=== PATIENT | male | born 1975 | race African-American/Black ===

== ENCOUNTER 2017-03-10 20:24 | Emergency (ER) | payer SELFPAY ==
[~2017-03-10] VITALS: Ht 175.3 cm; Wt 72.6 kg
[~2017-03-10 20:24] MED LIST: GLIM4TAB2 PO; LISI-334 PO; LOVA20TA2 PO; METF-620 PO; SITA100T PO
[2017-03-10 20:42] VITALS: BP 142/77
[2017-03-10] MEDS ORDERED: PRED20TA PO (21:41)
--- NOTE | 2017-03-10 21:41 | PHYS DOC ---
Past Medical History Past Medical History: Diabetes-Type II, Other Additional Past Medical Histor: etoh Past Surgical History: No Surgical History Additional Past Surgical Histo: hernia repair Alcohol Use: Sober Drug Use: None Adult General Chief Complaint Chief Complaint: ALLERGIC REACTION [facility] HPI Patient is a 41 year old male presents to the emergency partner stating that he has a rash on bilateral arms and legs. He states he's been having this for the last 3-4 days. 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 Patient denies any shortness of air difficulty breathing. He states that he's tried Benadryl without any success. Patient does state he is a diabetic that is on diabetic oral medications. Review of Systems Review of Systems Constitutional: Denies fever or chills [] Eyes: Denies change in visual acuity, redness, or eye pain [] HENT: Denies nasal congestion or sore throat [] Respiratory: Denies cough or shortness of breath [] Cardiovascular: No additional information not addressed in HPI [] GI: Denies abdominal pain, nausea, vomiting, bloody stools or diarrhea [] : Denies dysuria or hematuria [] Musculoskeletal: Denies back pain or joint pain [] Integument: rash denies skin lesions [] Neurologic: Denies headache, focal weakness or sensory changes [] Endocrine: Denies polyuria or polydipsia [] Allergies Allergies Allergies Coded Allergies Type Severity Reaction Last Updated Verified No Known Drug Allergies 04/11/15 No Physical Exam Physical Exam Constitutional: Well developed, well nourished, no acute distress, non-toxic appearance. [] HENT: Normocephalic, atraumatic, bilateral external ears normal, oropharynx moist, no oral exudates, nose normal. [] Eyes: PERRLA, EOMI, conjunctiva normal, no discharge. [] Neck: Normal range of motion, no tenderness, supple, no stridor. [] Cardiovascular:Heart rate regular rhythm, no murmur [] Lungs & Thorax: Bilateral breath sounds clear to auscultation [] Skin: Warm, dry, no erythema, patient with some areas that appear to be urticarial type rash other areas just appear to be red raised area. No drainage or discharge coming from the sites. Back: No tenderness Extremities: No tenderness, no cyanosis, no clubbing, ROM intact, no edema. [] Neurologic: Alert and oriented X 3, normal motor function, normal sensory function, no focal deficits noted. [] Psychologic: Affect normal, judgement normal, mood normal. [] Current Patient Data Vital Signs Vital Signs Date Time Temp Pulse Resp B/P (MAP) Pulse Ox O2 Delivery O2 Flow Rate FiO2 03/10/17 20:42 98.2 67 20 99 Room Air 98.2 EKG EKG [] Radiology/Procedures Radiology/Procedures [] Course & Med Decision Making Course & Med Decision Making Pertinent Labs and Imaging studies reviewed. (See chart for details) Patient was recommended to follow-up with a primary care physician in regards to allergy to medications however I feel that this is more of a contact dermatitis. Patient will be recommended to use Benadryl 25 mg every 6 hours to help with itching and irritation. He was instructed this medication will cause drowsiness do not take any be alert and oriented. Patient will also be provided with a prescription for prednisone. He was instructed this medication will cause his glucoses to be elevated. Recommended taking this for the 7 days. Also recommended a Pepcid [id number] on a daily basis for the next 7 days. Patient agrees with discharge instructions, treatment regimens and follow-up recommendations. Signs and symptoms to return back to emergency department as been provided. Also recommended patient to keep the areas clean dry and cool Aveeno baths may also help. [] Dragon Disclaimer Dragon Disclaimer This electronic medical record was generated, in whole or in part, using a voice recognition dictation system. Departure Departure Impression: Primary Impression: Contact dermatitis Disposition: 01 HOME, SELF-CARE Condition: STABLE Referrals: NO PCP (PCP) Patient Instructions: Contact Dermatitis, [id number] Additional Instructions: Activity as tolerated. Keep the areas clean dry and cool. Benadryl 25 mg every 6 hours as needed for itching or irritation. This medications will cause drowsiness do not take any be alert and oriented. Medications as prescribed. Pepcid 1 tablet daily as directed [id number]. He may take this for the next 7 days to help with the contact dermatitis. Follow-up to primary care physician in the next 5-7 days. Return back to emergency prior signs symptoms of become worse. Scripts Prednisone (PREDNISONE) 20 Mg Tablet 40 MG PO DAILY, #14 TAB Prov: SHARIF RAPHAEL APRN 03/10/17 SHARIF RAPHAEL APRN Mar 10, 2017 21:41
== END 2017-03-10 21:45 | disposition home or self-care (01) ==
LOC: ER 20:24
DX: L25.9 Unspecified contact dermatitis, unspecified cause (principal); E11.9 Type 2 diabetes mellitus without complications
CPT/HCPCS: 99283

== ENCOUNTER 2017-10-12 00:42 | Emergency (ER) | payer OTHER ==
[2017-10-12] MEDS: IV NORMAL SALINE 1000ML BAG 1,000 ML IV (03:20)
== END 2017-10-12 04:08 | disposition home or self-care (01) ==
LOC: ER 00:42
DX: R05 Cough (principal); F17.200 Nicotine dependence, unspecified, uncomplicated; E86.0 Dehydration; E11.65 Type 2 diabetes mellitus with hyperglycemia; R07.89 Other chest pain; I10 Essential (primary) hypertension; Z71.6 Tobacco abuse counseling
CPT/HCPCS: 71046; 84484; 93005; 96360; 99284-25; J7030

== ENCOUNTER 2018-07-03 22:30 | Emergency (ER) | payer OTHER ==
[~2018-07-03] VITALS: Ht 172.7 cm; Wt 72.6 kg
[~2018-07-03 22:30] MED LIST changes: +BENZ100C PO; +CEPH-264 PO; +DOXY100T9 PO; +FOLI1TAB16 PO; -METF-620 PO; +METF10007 PO; +PRED20TA PO
[2018-07-03 23:08] LABS: BASO % 1 % (0-3); EOS # 0.1 x10^3/uL (0.0-0.7); EOS % 1 % (0-3); HEMATOCRIT 50.8 % (39.0-53.0); HEMOGLOBIN 17.7 g/dL (13.0-17.5); LYMPH # 4.4 x10^3/uL (1.0-4.8); LYMPH % 62 % (24-48); MEAN CORPUSCULAR HEMOGLOBIN 33 pg (25-35); MEAN CORPUSCULAR HGB CONC 35 g/dL (31-37); MEAN CORPUSCULAR VOLUME 95 fL (79-100); MONO # 0.5 x10^3/uL (0.0-1.1); MONO % 7 % (0-9); NEUT # 2.1 x10^3uL (1.8-7.7); NEUT % 29 % (31-73); PLATELET COUNT 156 x10^3/uL (140-400); RED BLOOD COUNT 5.35 x10^6/uL (4.30-5.70); RED CELL DISTRIBUTION WIDTH 14.4 % (11.5-14.5); WHITE BLOOD COUNT 7.1 x10^3/uL (4.0-11.0)
[2018-07-03 23:15] LABS: CALCIUM 9.4 mg/dL (8.5-10.1); GFR 99.6; POTASSIUM 4.4 mmol/L (3.5-5.1)
[2018-07-03] MEDS ORDERED: IV NORMAL SALINE 1000ML BAG 1,000 ML IV ONE (23:15)
[2018-07-03 23:20] LABS: ALBUMIN 4.1 g/dL (3.4-5.0); TOTAL BILIRUBIN 0.2 mg/dL (0.2-1.0); TOTAL PROTEIN 8.2 g/dL (6.4-8.2)
[2018-07-03 23:38] LABS: % BASOS 1 % (0-3); % EOS 1 % (0-5); % MONOS 4 % (0-10); % SEGS 24 % (35-66); PLT ESTIMATE ADEQUATE (ADEQUATE)
[2018-07-03 23:39] LABS: % ATYL 5 % (0-0); % LYMPHS 65 % (24-48)
--- NOTE | 2018-07-04 01:30 | PHYS DOC ---
Past Medical History Past Medical History: Diabetes-Type II, Hypertension Additional Past Medical Histor: etoh Past Surgical History: Other Additional Past Surgical Histo: HERNIA SX Alcohol Use: Heavy Drug Use: None Adult General Chief Complaint Chief Complaint: ALCOHOL INTOXICATION HPI HPI Patient is a 43 year old female presented with alcohol intoxication he drank too much alcohol said she thought that the patient was going to have a seizure because he wet himself he was unconscious and drooling. History limited by the patient's mental status Review of Systems Review of Systems Limited by the patient's mental status. Current Medications Current Medications Current Medications Medications (Trade) Dose Ordered Sig/Serafin Start Time Stop Time Status Last Admin Dose Admin Sodium Chloride 1,000 ml @ 1,000 mls/hr 1X ONCE 07/03/18 23:15 07/04/18 00:14 DC 07/03/18 23:07 1,000 MLS/HR Allergies Allergies Allergies Coded Allergies Type Severity Reaction Last Updated Verified No Known Drug Allergies 04/11/15 No Physical Exam Physical Exam Constitutional: Well developed, well nourished,[] smells like alcohol HENT: Normocephalic, atraumatic, bilateral external ears normal, oropharynx moist, no oral exudates, nose normal. [] Eyes: PERRLA, EOMI, conjunctiva normal, no discharge. [] Neck: Normal range of motion, no tenderness, supple, no stridor. [] Cardiovascular:Heart rate regular rhythm, no murmur [] Lungs & Thorax: Bilateral breath sounds clear to auscultation [] Abdomen: Bowel sounds normal, soft, no tenderness, no masses, no pulsatile masses. [] Skin: Warm, dry, no erythema, no rash. [] Back: No tenderness, no CVA tenderness. [] Extremities: No tenderness, no cyanosis, no clubbing, ROM intact, no edema. [] Neurologic: Alert and oriented X 3, normal motor function, normal sensory function, no focal deficits noted. [] SPEECH slurred c/w known alcohol. Psychologic:difficult to assess. Current Patient Data Vital Signs Vital Signs Date Time Temp Pulse Resp B/P (MAP) Pulse Ox O2 Delivery O2 Flow Rate FiO2 07/04/18 02:25 105 16 115/69 (84) 98 Room Air 07/03/18 22:30 97.9 97.9 Lab Values Laboratory Tests Test 07/03/18 22:40 White Blood Count 7.1 x10^3/uL (4.0-11.0) Red Blood Count 5.35 x10^6/uL (4.30-5.70) Hemoglobin 17.7 g/dL (13.0-17.5) H Hematocrit 50.8 % (39.0-53.0) Mean Corpuscular Volume 95 fL (79-100) Mean Corpuscular Hemoglobin 33 pg (25-35) Mean Corpuscular Hemoglobin Concent 35 g/dL (31-37) Red Cell Distribution Width 14.4 % (11.5-14.5) Platelet Count 156 x10^3/uL (140-400) Neutrophils (%) (Auto) 29 % (31-73) L Lymphocytes (%) (Auto) 62 % (24-48) H Monocytes (%) (Auto) 7 % (0-9) Eosinophils (%) (Auto) 1 % (0-3) Basophils (%) (Auto) 1 % (0-3) Neutrophils # (Auto) 2.1 x10^3uL (1.8-7.7) Lymphocytes # (Auto) 4.4 x10^3/uL (1.0-4.8) Monocytes # (Auto) 0.5 x10^3/uL (0.0-1.1) Eosinophils # (Auto) 0.1 x10^3/uL (0.0-0.7) Basophils # (Auto) 0.0 x10^3/uL (0.0-0.2) Segmented Neutrophils % 24 % (35-66) L Lymphocytes % 65 % (24-48) H Atypical Lymphocytes % (Manual) 5 % (0-0) H Monocytes % 4 % (0-10) Eosinophils % 1 % (0-5) Basophils % 1 % (0-3) Platelet Estimate Adequate (ADEQUATE) Sodium Level 143 mmol/L (136-145) Potassium Level 4.4 mmol/L (3.5-5.1) Chloride Level 101 mmol/L (98-107) Carbon Dioxide Level 27 mmol/L (21-32) Anion Gap 15 (6-14) H Blood Urea Nitrogen 7 mg/dL (8-26) L Creatinine 1.0 mg/dL (0.7-1.3) Estimated GFR (Cockcroft-Gault) 99.6 BUN/Creatinine Ratio 7 (6-20) Glucose Level 250 mg/dL (70-99) H Calcium Level 9.4 mg/dL (8.5-10.1) Total Bilirubin 0.2 mg/dL (0.2-1.0) Aspartate Amino Transferase (AST) 99 U/L (15-37) H Alanine Aminotransferase (ALT) 79 U/L (16-63) H Alkaline Phosphatase 109 U/L (46-116) Total Protein 8.2 g/dL (6.4-8.2) Albumin 4.1 g/dL (3.4-5.0) Albumin/Globulin Ratio 1.0 (1.0-1.7) Ethyl Alcohol Level 502 mg/dL (0-10) *H Laboratory Tests 07/03/18 22:40 Laboratory Tests 07/03/18 22:40 EKG EKG [] Radiology/Procedures Radiology/Procedures [] Course & Med Decision Making Course & Med Decision Making Pertinent Labs and Imaging studies reviewed. (See chart for details) []Patient is not elevation of liver enzymes which is to be expected the alcohol level is 502 this is quite elevated. Patient is maintaining his airway. Pressure was 250 patient was hydrated we will observe him for serial neurologic examinations in the emergency room. Reevaluation at 1:20 AM patient is arousable to light touch sat is 94 and room air he is breathing and resting comfortably will continue observe him. 3 am, notified by staff patient had walked to the bathroom fairly steady gait. d/c with family Dragon Disclaimer Dragon Disclaimer This electronic medical record was generated, in whole or in part, using a voice recognition dictation system. Departure Departure Impression: Primary Impression: Alcohol abuse Disposition: HOME, SELF-CARE Condition: STABLE Referrals: NO PCP (PCP) CAROLEE TAMAYO MD Jul 04, 2018 01:30
[2018-07-04 02:25] VITALS: BP 115/69
== END 2018-07-04 03:25 | disposition home or self-care (01) ==
LOC: ER 22:30
DX: F10.129 Alcohol abuse with intoxication, unspecified (principal); Y90.8 Blood alcohol level of 240 mg/100 ml or more; I10 Essential (primary) hypertension; E11.9 Type 2 diabetes mellitus without complications
CPT/HCPCS: 36415; 80053; 85007; 85025; 99284; G0480; J7030; 96360

== ENCOUNTER 2019-04-27 22:14 | Emergency (ER) | payer BC, OTHER ==
[~2019-04-27] VITALS: Ht 177.8 cm; Wt 68.0 kg
[~2019-04-27 22:14] MED LIST changes: +DOXY-96 PO; -DOXY100T9 PO; -GLIM4TAB2 PO; +GLIM4TAB4 PO
[2019-04-27 22:45] LABS: BASO % 1 % (0-3); EOS # 0.1 x10^3/uL (0.0-0.7); EOS % 1 % (0-3); HEMATOCRIT 39.8 % (39.0-53.0); HEMOGLOBIN 13.9 g/dL (13.0-17.5); LYMPH # 3.6 x10^3/uL (1.0-4.8); LYMPH % 65 % (24-48); MEAN CORPUSCULAR HEMOGLOBIN 33 pg (25-35); MEAN CORPUSCULAR HGB CONC 35 g/dL (31-37); MEAN CORPUSCULAR VOLUME 95 fL (79-100); MONO # 0.5 x10^3/uL (0.0-1.1); MONO % 9 % (0-9); NEUT # 1.4 x10^3/uL (1.8-7.7); NEUT % 24 % (31-73); PLATELET COUNT 189 x10^3/uL (140-400); RED BLOOD COUNT 4.18 x10^6/uL (4.30-5.70); RED CELL DISTRIBUTION WIDTH 13.7 % (11.5-14.5); WHITE BLOOD COUNT 5.6 x10^3/uL (4.0-11.0)
--- NOTE | 2019-04-27 22:50 | PHYS DOC ---
Past Medical History Past Medical History: Diabetes-Type II, Hypertension Additional Past Medical Histor: etoh Past Surgical History: Other Additional Past Surgical Histo: HERNIA SX Alcohol Use: Heavy Drug Use: None Adult General Chief Complaint Chief Complaint: HEMATEMESIS/VOMITING BLOOD HPI HPI 43-year-old male presents to the emergency department with complaints of hemat emesis, nausea, vomiting, dark stools that are intermittent, intermittent epigastric pain. Patient states he's been having these symptoms off and on for approximately 1-1/2 months. He describes drinking daily, 1 pint of vodka. He patient's family history of diabetes, hypertension, hyperlipidemia. States the vomiting is not daily. He states he's had decreased appetite. Review of Systems Review of Systems Constitutional: Denies fever or chills [] Respiratory: Denies cough or shortness of breath [] Cardiovascular: No additional information not addressed in HPI [] GI: Intermittent epigastric pain, nausea, vomiting, hematemesis, dark stools that are intermittent Musculoskeletal: Denies back pain or joint pain [] Integument: Denies rash or skin lesions [] Neurologic: Denies headache, focal weakness or sensory changes [] All other systems were reviewed and found to be within normal limits, except as documented in this note. Current Medications Current Medications Current Medications Medications (Trade) Dose Ordered Sig/Serafin Start Time Stop Time Status Last Admin Dose Admin Magnesium Sulfate 50 ml @ 25 mls/hr 1X ONCE 04/28/19 00:15 04/28/19 02:14 Pantoprazole Sodium (PROTONIX VIAL for IV PUSH) 40 mg 1X ONCE 04/28/19 00:15 04/28/19 00:16 Allergies Allergies Allergies Coded Allergies Type Severity Reaction Last Updated Verified No Known Drug Allergies 04/11/15 No Physical Exam Physical Exam Constitutional: Well developed, well nourished, no acute distress, non-toxic appearance. [] HENT: Normocephalic, atraumatic, bilateral external ears normal, oropharynx moist, no oral exudates, nose normal. [] Eyes: PERRLA, EOMI, conjunctiva normal, no discharge. [] Cardiovascular:Heart rate regular rhythm, no murmur [] Lungs & Thorax: Bilateral breath sounds clear to auscultation [] Abdomen: Bowel sounds normal, soft, no tenderness, no masses, no pulsatile masses. [] Skin: Warm, dry, no erythema, no rash. [] Extremities: No tenderness, no edema. [] Neurologic: Alert and oriented X 3, no focal deficits noted. [] Psychologic: Affect normal, judgement normal, mood normal. [] Current Patient Data Vital Signs Vital Signs Date Time Temp Pulse Resp B/P (MAP) Pulse Ox O2 Delivery O2 Flow Rate FiO2 04/27/19 22:22 99.2 89 12 170/105 (126) 97 Room Air 99.2 Lab Values Laboratory Tests Test 04/27/19 22:28 04/27/19 22:34 White Blood Count 5.6 x10^3/uL (4.0-11.0) Red Blood Count 4.18 x10^6/uL (4.30-5.70) L Hemoglobin 13.9 g/dL (13.0-17.5) Hematocrit 39.8 % (39.0-53.0) Mean Corpuscular Volume 95 fL (79-100) Mean Corpuscular Hemoglobin 33 pg (25-35) Mean Corpuscular Hemoglobin Concent 35 g/dL (31-37) Red Cell Distribution Width 13.7 % (11.5-14.5) Platelet Count 189 x10^3/uL (140-400) Neutrophils (%) (Auto) 24 % (31-73) L Lymphocytes (%) (Auto) 65 % (24-48) H Monocytes (%) (Auto) 9 % (0-9) Eosinophils (%) (Auto) 1 % (0-3) Basophils (%) (Auto) 1 % (0-3) Neutrophils # (Auto) 1.4 x10^3/uL (1.8-7.7) L Lymphocytes # (Auto) 3.6 x10^3/uL (1.0-4.8) Monocytes # (Auto) 0.5 x10^3/uL (0.0-1.1) Eosinophils # (Auto) 0.1 x10^3/uL (0.0-0.7) Basophils # (Auto) 0.0 x10^3/uL (0.0-0.2) Segmented Neutrophils % 23 % (35-66) L Lymphocytes % 68 % (24-48) H Atypical Lymphocytes % (Manual) 2 % (0-0) H Monocytes % 6 % (0-10) Eosinophils % 1 % (0-5) Smudge Cells Present Platelet Estimate Adequate (ADEQUATE) Sodium Level 134 mmol/L (136-145) L Potassium Level 3.7 mmol/L (3.5-5.1) Chloride Level 97 mmol/L (98-107) L Carbon Dioxide Level 23 mmol/L (21-32) Anion Gap 14 (6-14) Blood Urea Nitrogen 11 mg/dL (8-26) Creatinine 1.0 mg/dL (0.7-1.3) Estimated GFR (Cockcroft-Gault) 99.6 BUN/Creatinine Ratio 11 (6-20) Glucose Level 213 mg/dL (70-99) H Calcium Level 8.9 mg/dL (8.5-10.1) Magnesium Level 1.7 mg/dL (1.8-2.4) L Total Bilirubin 0.8 mg/dL (0.2-1.0) Aspartate Amino Transferase (AST) 189 U/L (15-37) H Alanine Aminotransferase (ALT) 93 U/L (16-63) H Alkaline Phosphatase 78 U/L (46-116) Total Protein 7.5 g/dL (6.4-8.2) Albumin 3.6 g/dL (3.4-5.0) Albumin/Globulin Ratio 0.9 (1.0-1.7) L Lipase 189 U/L (73-393) Ethyl Alcohol Level 277 mg/dL (0-10) H Stool Occult Blood Negative (NEG) Laboratory Tests 04/27/19 22:28 Laboratory Tests 04/27/19 22:28 EKG EKG [] Radiology/Procedures Radiology/Procedures [] Course & Med Decision Making Course & Med Decision Making Pertinent Labs and Imaging studies reviewed. (See chart for details) []43-year-old male presents to the emergency department with complaints of hematemesis, nausea, vomiting, dark stools that are intermittent, intermittent epigastric pain. Patient states he's been having these symptoms off and on for approximately 1-1/2 months. He describes drinking daily, 1 pint of vodka. He patient's family history of diabetes, hypertension, hyperlipidemia. States the vomiting is not daily. He states he's had decreased appetite. Labs reviewed with patient. Magnesium low at 1.7, he will of 13.9, negative Hemoccult appreciated. His blood pressure did improve after hydralazine 10 mg. A call cessation, Protonix 40 mg by mouth twice a day, addition of amlodipine 10 mg daily for blood pressure control. Recommend following primary care physician as an outpatient. Likely has alcoholic gastritis no evidence of acute or active bleeding. Dragon Disclaimer Dragon Disclaimer This electronic medical record was generated, in whole or in part, using a voice recognition dictation system. Departure Departure Impression: Primary Impression: Hematemesis Additional Impressions: Alcoholic gastritis Hypertension Alcohol abuse Disposition: HOME, SELF-CARE Condition: STABLE Referrals: NO PCP (PCP) Patient Instructions: Alcoholic Gastritis-Brief, Hypertension Additional Instructions: Recommend follow up with PCP 3 - 5 days Return to the ER with worsening symptoms, intractable pain, fever, altered mental status Tylenol as needed for pain Protonix 40 mg by mouth twice a day Recommend slow alcohol cessation, discussed signs of alcohol withdrawal No evidence of active GI bleed, hemoglobin stable, no evidence of blood in stool Scripts Amlodipine Besylate/Benazepril (AMLODIPINE-BENAZEPRIL 10-20 MG) 1 Each Capsule 1 CAP PO DAILY, #90 CAP 1 Refill Prov: FLETCHER PATEL MD 04/28/19 Pantoprazole Sodium (PROTONIX) 20 Mg Tablet.dr 20 MG PO DAILY for 30 Days, #60 TAB 2 by mouth twice a day Prov: FLETCHER PATEL MD 04/28/19 Problem Qualifiers Primary Impression: Hematemesis Nausea presence: unspecified Qualified Codes: K92.0 - Hematemesis Additional Impressions: Alcoholic gastritis Chronicity: chronic Gastritis bleeding: presence of bleeding unspecified Qualified Codes: K29.20 - Alcoholic gastritis without bleeding Hypertension Hypertension type: essential hypertension Qualified Codes: I10 - Essential (primary) hypertension FLETCHER PATEL MD Apr 27, 2019 22:50
[2019-04-27 22:55] LABS: CALCIUM 8.9 mg/dL (8.5-10.1); GFR 99.6; POTASSIUM 3.7 mmol/L (3.5-5.1)
[2019-04-27 23:01] LABS: ALBUMIN 3.6 g/dL (3.4-5.0); ALBUMIN/GLOBULIN RATIO 0.9 (1.0-1.7); MAGNESIUM 1.7 mg/dL (1.8-2.4); TOTAL BILIRUBIN 0.8 mg/dL (0.2-1.0); TOTAL PROTEIN 7.5 g/dL (6.4-8.2)
[2019-04-27 23:23] LABS: % ATYL 2 % (0-0); % EOS 1 % (0-5); % LYMPHS 68 % (24-48); % MONOS 6 % (0-10); % SEGS 23 % (35-66); PLT ESTIMATE ADEQUATE (ADEQUATE)
[2019-04-28 00:02] LABS: FECAL OB PT NEGATIVE (NEG)
[2019-04-28] MEDS ORDERED: MAGNESIUM SULFATE 2GM 50 ML IV ONE (00:15)
[2019-04-28] MEDS ORDERED: PANTOPRAZOLE IV PUSH 40 MG VIAL. IVP ONE (00:15)
[2019-04-28] MEDS ORDERED: AMLO1CAP13 PO (00:18)
[2019-04-28] MEDS ORDERED: PANT20TA2 PO (00:18)
[2019-04-28 01:26] VITALS: BP 132/78
[2019-04-28 15:45] LABS: SMUDGE CELLS PRESENT
== END 2019-04-28 01:49 | disposition home or self-care (01) ==
LOC: ER 22:49
DX: K29.20 Alcoholic gastritis without bleeding (principal); K92.0 Hematemesis; I10 Essential (primary) hypertension; E11.9 Type 2 diabetes mellitus without complications; F10.20 Alcohol dependence, uncomplicated; Y90.8 Blood alcohol level of 240 mg/100 ml or more; Z98.890 Other specified postprocedural states
CPT/HCPCS: 36415; 80053; 82274; 83690; 83735; 85007; 85025; 96365; 96375; 99284; C9113; G0480; J3475

== ENCOUNTER 2020-04-01 18:16 | Emergency (ER) | payer SELFPAY ==
[~2020-04-01] VITALS: Ht 177.8 cm; Wt 63.6 kg
[~2020-04-01 18:16] MED LIST changes: +AMLO1CAP13 PO; +GABA600T7 PO; -GLIM4TAB4 PO; +GLIM4TAB8 PO; +INSU300I SQ; +MULT1TAB90 PO; +PANT20TA2 PO; +THIA100T22 PO
[2020-04-01 19:09] LABS: BASO # 0.1 x10^3/uL (0.0-0.2); BASO % 1 % (0-3); EOS % 1 % (0-3); HEMATOCRIT 41.7 % (39.0-53.0); HEMOGLOBIN 14.2 g/dL (13.0-17.5); LYMPH # 2.7 x10^3/uL (1.0-4.8); LYMPH % 44 % (24-48); MEAN CORPUSCULAR HEMOGLOBIN 31 pg (25-35); MEAN CORPUSCULAR HGB CONC 34 g/dL (31-37); MEAN CORPUSCULAR VOLUME 89 fL (79-100); MONO # 0.4 x10^3/uL (0.0-1.1); MONO % 6 % (0-9); NEUT % 48 % (31-73); PLATELET COUNT 181 x10^3/uL (140-400); RED BLOOD COUNT 4.67 x10^6/uL (4.30-5.70); RED CELL DISTRIBUTION WIDTH 17.5 % (11.5-14.5); WHITE BLOOD COUNT 6.2 x10^3/uL (4.0-11.0)
--- NOTE | 2020-04-01 19:13 | PHYS DOC ---
Past Medical History Past Medical History: Alcoholism, Diabetes-Type II, High Cholesterol, Hypertension, Other Additional Past Medical Histor: ETOH ABUSE,SLEEP APNEA Past Surgical History: Other Additional Past Surgical Histo: HERNIA REPAIR Smoking Status: Current Every Day Smoker Additional Information: SMOKES 5 BLACK & MILDS A DAY Alcohol Use: Heavy Additional Information: DRINKS 1/5 VODKA DAILY Drug Use: None General Adult EDM: Chief Complaint: ABDOMINAL PAIN HPI: HPI: The history was obtained from the patient. Patient is a 44-year-old male with PMH insulin-dependent diabetic, alcohol abuse who presents with a chief complaint of epigastric abdominal discomfort. Patient states he has had epigast renae abdominal pain intermittently over the past several months. He states the pain seems to worsen over the past few days. States the pain is aching in nature. He states eating food seems to make the pain worse. He states he has been drinking 1/5 of vodka daily for the past several weeks to months. He states this tends to worsen the pain as well. Notes nausea without vomiting. Denies any unexplained weight loss. Denies any changes to his stool caliber or consistency. Notes dark foul-smelling urine. Denies penile discharge or testicular pain. Denies history of peptic ulcer disease. Denies any chest pain or shortness of breath. Denies cough or fever. Has not tried any medicine at home to help with the symptoms. Review of Systems: Review of Systems: Constitutional: Denies fever or chills. [] Eyes: Denies change in visual acuity. [] HENT: Denies nasal congestion or sore throat. [] Respiratory: Denies cough or shortness of breath. [] Cardiovascular: Denies chest pain or edema. [] GI: Positive for abdominal pain and nausea : Denies dysuria. [] Musculoskeletal: Denies back pain or joint pain. [] Integument: Denies rash. [] Neurologic: Denies headache, focal weakness or sensory changes. [] Endocrine: Denies polyuria or polydipsia. [] Lymphatic: Denies swollen glands. [] Psychiatric: Denies depression or anxiety. [] Heart Score: Risk Factors: Risk Factors: DM, Current or recent (<one month) smoker, HTN, HLP, family history of CAD, obesity. Risk Scores: Score 0 - 3: 2.5% MACE over next 6 weeks - Discharge Home Score 4 - 6: 20.3% MACE over next 6 weeks - Admit for Clinical Observation Score 7 - 10: 72.7% MACE over next 6 weeks - Early Invasive Strategies Current Medications: Current Medications Medications (Trade) Dose Ordered Sig/Serafin Start Time Stop Time Status Last Admin Dose Admin Morphine Sulfate (Morphine Sulfate) 4 mg 1X ONCE 04/01/20 19:15 04/01/20 19:16 Ondansetron HCl (Zofran) 4 mg 1X ONCE 04/01/20 19:15 04/01/20 19:16 Ringer's Solution 1,000 ml @ 1,000 mls/hr 1X ONCE 04/01/20 19:15 04/01/20 20:14 Allergies: Allergies: Allergies Coded Allergies Type Severity Reaction Last Updated Verified No Known Drug Allergies 04/11/15 No Physical Exam: PE: Constitutional: Well developed, well nourished, no acute distress, non-toxic appearance. [] HENT: Normocephalic, atraumatic, bilateral external ears normal, oropharynx moist, no oral exudates, nose normal. [] Eyes: PERRLA, EOMI, conjunctiva normal, no discharge. [] Neck: Normal range of motion, no tenderness, supple, no stridor. [] Cardiovascular:Heart rate regular rhythm, no murmur [] Lungs & Thorax: Bilateral breath sounds clear to auscultation [] Abdomen: Mild epigastric tenderness to palpation. No involuntary guarding or rigidity noted. No acute peritonitis. Skin: Warm, dry, no erythema, no rash. [] Back: No tenderness, no CVA tenderness. [] Extremities: No tenderness, no cyanosis, no clubbing, ROM intact, no edema. [] Neurologic: Alert and oriented X 3, normal motor function, normal sensory function, no focal deficits noted. [] Psychologic: Affect normal, judgement normal, mood normal. [] Current Patient Data: Labs: Laboratory Tests Test 04/01/20 18:30 White Blood Count 6.2 x10^3/uL (4.0-11.0) Red Blood Count 4.67 x10^6/uL (4.30-5.70) Hemoglobin 14.2 g/dL (13.0-17.5) Hematocrit 41.7 % (39.0-53.0) Mean Corpuscular Volume 89 fL (79-100) Mean Corpuscular Hemoglobin 31 pg (25-35) Mean Corpuscular Hemoglobin Concent 34 g/dL (31-37) Red Cell Distribution Width 17.5 % (11.5-14.5) H Platelet Count 181 x10^3/uL (140-400) Neutrophils (%) (Auto) 48 % (31-73) Lymphocytes (%) (Auto) 44 % (24-48) Monocytes (%) (Auto) 6 % (0-9) Eosinophils (%) (Auto) 1 % (0-3) Basophils (%) (Auto) 1 % (0-3) Neutrophils # (Auto) 3.0 x10^3/uL (1.8-7.7) Lymphocytes # (Auto) 2.7 x10^3/uL (1.0-4.8) Monocytes # (Auto) 0.4 x10^3/uL (0.0-1.1) Eosinophils # (Auto) 0.0 x10^3/uL (0.0-0.7) Basophils # (Auto) 0.1 x10^3/uL (0.0-0.2) Laboratory Tests 04/01/20 18:30 Vital Signs: Vital Signs Date Time Temp Pulse Resp B/P (MAP) Pulse Ox O2 Delivery O2 Flow Rate FiO2 04/01/20 18:25 97.9 91 17 146/97 (113) 98 Room Air 97.9 EKG: EKG: EKG consistent with normal sinus rhythm. Ventricular rate of 86 bpm. [place] normal. Intervals normal. No acute ischemic changes appreciated. [] Radiology/Procedures: Radiology/Procedures: [][facility] [address] [place] [address] IMAGING REPORT Signed PATIENT: RAFAELA DARDEN VACCOUNT: [id number] : 1975 LOCATION: ER AGE: 44 SEX: M EXAM STATUS: REG ER ORD. PHYSICIAN: LILIAN JONES DO REASON: epigastric apin, OMNI 300, 75 ML IV PROCEDURE: CT ABD PELV W/ IV CONTRST ONLY Examination: CT of the abdomen pelvis with IV contrast HISTORY: History of epigastric pain COMPARISON: 02/14/2017 TECHNIQUE: Axial CT images of the abdomen and pelvis were performed with IV contrast. Coronal sagittal reformats are performed. Exposure: One or more of the following individualized dose reduction techniques were utilized for this examination: 1. Automated exposure control 2. Adjustment of the mA and/or kV according to patient size 3. Use of iterative reconstruction technique FINDINGS: The bibasilar lungs are clear. No evidence of free air identified in the abdomen. Decreased attenuation noted in the liver likely hepatic steatosis. The visualized spleen, adrenals grossly appears unremarkable. The gallbladder is mildly distended. The stomach is mildly distended. The head of the pancreas is prominent with multiple calcifications in the head of the pancreas with questionable mild fat stranding identified about the head of the pancreas. Fluid distended small bowel loops identified in the left abdomen. Feces and gas noted in the colon. The appendix is normal. The bilateral kidneys enhance symmetrically. Urinary bladder is mildly distended Mild aortic atherosclerosis. Bilateral L5 spondylolysis with 9 mm anterolisthesis of L5 on S1. IMPRESSION: 1. Head of the pancreas is prominent with multiple calcifications in the head of the pancreas with questionable mild fat stranding identified about the head of the pancreas could be mild pancreatitis, underlying mass of the pancreatic head is not excluded. Consider follow-up MRCP with MRI for further evaluation. 2. Hepatic steatosis. Electronically signed by: Sina Teran MD (04/01/2020 9:03 PM) [id number] DICTATED and SIGNED BY: SINA TERAN MD DATE: 04/01/20 2103 Course & Med Decision Making: Course & Med Decision Making Pertinent Labs and Imaging studies reviewed. (See chart for details) Patient is a 44-year-old male with a history of alcoholic abuse who presents with epigastric abdominal pain intermittently over the past several months. Basic labs are consistent with mild alcoholic hepatitis. He does have a mild hypokalemia and hypomagnesia. This was replaced orally in the emergency department. Lipase within normal limits. EKG unremarkable. CT abdomen pelvis was obtained and does show multiple pancreatic calcifications. Of note they cannot fully exclude pancreatic head cancer based on the current imaging. I did discuss results of labs and imaging in great detail with the patient. I did recommend hospitalization for further work-up including MRCP or MRI of the abdomen to further identify the pancreatic lesions. Patient is declining hospitalization at this time and would like to be discharged home and follow-up outpatient. Overall the patient does have a low meld score. He has tolerated p.o. His abdomen repeat examination remains benign. Vital signs remained stable. Patient be given referral to a GI specialist. He will be discharged home with a short course of potassium magnesium. Zofran Pepcid will also be given. Patient was encouraged to report back to the emergency department at any time should he want further care. He was instructed to follow-up with his primary care physician in the next 2 to 3 days. Utilizing shared decision making patient will be discharged home for outpatient management. Dragon Disclaimer: Coridea Disclaimer: This electronic medical record was generated, in whole or in part, using a voice recognition dictation system. Departure Departure Impression: Primary Impression: Alcoholic hepatitis Qualified Codes: K70.10 - Alcoholic hepatitis without ascites Additional Impressions: Hypokalemia Hypomagnesemia Epigastric abdominal pain Abnormal abdominal CT scan Disposition: 01 HOME, SELF-CARE Condition: STABLE Referrals: NO PCP (PCP) Patient Instructions: Alcoholic Hepatitis-Brief Additional Instructions: Please return to the emergency department in the next 12 to 24 hours should your symptoms not improve or worsen. Please follow-up with your primary care physician in the next 2 to 3 days. [facility] [address] [place] [address] [facility] [address] [place] [address] [facility] [address] [facility] [place] [address] [facility] [address] [place] [address] [facility] [address] [place] [address] [facility] [address] [place] [address] [facility] [address] [place] [address] [facility] [address] [place] [address] [facility] [address] [place] [address] [id number] [place] [address] Scripts Famotidine (PEPCID) 20 Mg Tablet 20 MG PO HS for 7 Days, #7 TAB Prov: LILIAN JONES DO 04/01/20 Ondansetron Hcl (ZOFRAN) 4 Mg Tablet 4 MG PO PRN TID PRN for NAUSEA, #15 nausea/vomiting Prov: LILIAN JONES DO 04/01/20 Magnesium Oxide (MAGNESIUM OXIDE) 400 Mg Tablet 1 TAB PO DAILY for 3 Days, #3 TAB 5 Refills Prov: LILIAN JONES DO 04/01/20 Potassium Chloride (POTASSIUM CHLORIDE ) 20 Meq Tablet.er 40 MEQ PO DAILY for SUPPLEMENT for 3 Days, #6 TAB.SR Prov: LILIAN JONES DO 04/01/20 Justicifation of Admission Dx: Justifications for Admission: Justification of Admission Dx: N/A Comments: LILIAN SWIFT DO Apr 01, 2020 19:13
[2020-04-01] MEDS ORDERED: MORPHINE SULFATE 4 MG/ML VIAL. IV ONE (19:15)
[2020-04-01] MEDS ORDERED: ONDANSETRON PF 4 MG/2 ML VIAL. IVP ONE (19:15)
[2020-04-01] MEDS ORDERED: IV RINGERS,LACTATED 1000ML 1,000 ML IV ONE (19:15)
[2020-04-01 19:16] LABS: CALCIUM 8.3 mg/dL (8.5-10.1); CREATININE 0.9 mg/dL (0.7-1.3); POTASSIUM 3.3 mmol/L (3.5-5.1); PROTHROMBIN TIME PATIENT 12.9 SEC (11.7-14.0)
[2020-04-01 19:21] LABS: ALBUMIN 3.4 g/dL (3.4-5.0); ALBUMIN/GLOBULIN RATIO 0.8 (1.0-1.7); MAGNESIUM 1.5 mg/dL (1.8-2.4); TOTAL BILIRUBIN 1.1 mg/dL (0.2-1.0); TOTAL PROTEIN 7.6 g/dL (6.4-8.2)
[2020-04-01 19:32] LABS: BILIRUBIN,URINE NEGATIVE (NEG); CLARITY,URINE CLEAR; COLOR,URINE YELLOW; NITRITE,URINE NEGATIVE (NEG); PROTEIN,URINE NEGATIVE (NEG-TRACE)
[2020-04-01 19:43] LABS: BACTERIA,URINE 0 /HPF (0-FEW); SQUAMOUS EPITHELIAL CELL,UR OCC /LPF
[2020-04-01] MEDS ORDERED: FOLIC ACID 1 MG TABLET. PO ONE (20:00)
[2020-04-01] MEDS ORDERED: THIAMINE 100 MG TABLET. PO ONE (20:00)
[2020-04-01] MEDS ORDERED: MAGNESIUM OXIDE 400 MG TABLET PO ONE (20:00)
[2020-04-01] MEDS ORDERED: POTASSIUM CHLORIDE 20 MEQ TABLET.ER. PO ONE (20:00)
[2020-04-01 20:02] VITALS: BP 158/94
[2020-04-01] MEDS ORDERED: IOHEXOL 300 MG/ML 100ML VIAL. IV ONE (20:30)
[2020-04-01] MEDS ORDERED: CONTRAST GIVEN. MC PRN (20:45)
[2020-04-01] MEDS ORDERED: ONDA4TAB7 PO (21:04)
[2020-04-01] MEDS ORDERED: POTA20TA4 PO (21:04)
[2020-04-01] MEDS ORDERED: MAGN400T5 PO (21:04)
[2020-04-01] MEDS ORDERED: FAMO-63 PO (21:04)
--- NOTE | 2020-04-01 21:06 | RAD ---
Examination: CT of the abdomen pelvis with IV contrast HISTORY: History of epigastric pain COMPARISON: 02/14/2017 TECHNIQUE: Axial CT images of the abdomen and pelvis were performed with IV contrast. Coronal sagittal reformats are performed. Exposure: One or more of the following individualized dose reduction techniques were utilized for this examination: 1. Automated exposure control 2. Adjustment of the mA and/or kV according to patient size 3. Use of iterative reconstruction technique FINDINGS: The bibasilar lungs are clear. No evidence of free air identified in the abdomen. Decreased attenuation noted in the liver likely hepatic steatosis. The visualized spleen, adrenals grossly appears unremarkable. The gallbladder is mildly distended. The stomach is mildly distended. The head of the pancreas is prominent with multiple calcifications in the head of the pancreas with questionable mild fat stranding identified about the head of the pancreas. Fluid distended small bowel loops identified in the left abdomen. Feces and gas noted in the colon. The appendix is normal. The bilateral kidneys enhance symmetrically. Urinary bladder is mildly distended Mild aortic atherosclerosis. Bilateral L5 spondylolysis with 9 mm anterolisthesis of L5 on S1. IMPRESSION: 1. Head of the pancreas is prominent with multiple calcifications in the head of the pancreas with questionable mild fat stranding identified about the head of the pancreas could be mild pancreatitis, underlying mass of the pancreatic head is not excluded. Consider follow-up MRCP with MRI for further evaluation. 2. Hepatic steatosis. Electronically signed by: Sina Teran MD (04/01/2020 9:03 PM) [id number]
--- NOTE | 2020-04-03 11:13 | EKG ---
[facility] [address] [place] [address] Test Date: 2020-04-01 Test Time: 18:31:09 Pat Name: RAFAELA DARDEN Department: Room: Gender: [employer]: : 1975 Requested By: LILIAN JONES Order Number: [id number] Reading MD: Measurements Intervals [place] Rate: 86 P: 90 WV: 154 QRS: 54 QRSD: 82 T: 56 QT: 368 QTc: 443 Interpretive Statements SINUS RHYTHM OTHERWISE NORMAL ECG RI6.02 No previous ECG available for comparison
== END 2020-04-01 21:30 | disposition home or self-care (01) ==
LOC: ER 18:16
DX: K70.10 Alcoholic hepatitis without ascites (principal); E87.6 Hypokalemia; E83.42 Hypomagnesemia; R10.13 Epigastric pain; R93.89 Abnormal findings on diagnostic imaging of other specified body structures; R11.0 Nausea; E11.9 Type 2 diabetes mellitus without complications; E78.00 Pure hypercholesterolemia, unspecified; I10 Essential (primary) hypertension; F10.10 Alcohol abuse, uncomplicated; F17.200 Nicotine dependence, unspecified, uncomplicated; Z98.890 Other specified postprocedural states
CPT/HCPCS: 36415; 74177; 80053; 81001; 82010; 83690; 83735; 84484; 85025; 85610; 93005; 96361; 96374; 96375; 99285; J2270; J2405; J7120; Q9967

== ENCOUNTER 2020-10-21 23:15 | Emergency (ER) | payer SELFPAY ==
[~2020-10-21] VITALS: Ht 172.7 cm; Wt 81.8 kg
[~2020-10-21 23:15] MED LIST changes: +FAMO-63 PO; -LISI-334 PO; +LISI20TA18 PO; +MAGN400T5 PO; -MULT1TAB90 PO; +MULT1TAB92 PO; +ONDA4TAB7 PO; +POTA20TA4 PO
[2020-10-21 23:47] LABS: BASO % 1 % (0-3); EOS % 0 % (0-3); HEMOGLOBIN 7.1 g/dL (13.0-17.5); LYMPH % 48 % (24-48); MEAN CORPUSCULAR HEMOGLOBIN 20 pg (25-35); MEAN CORPUSCULAR HGB CONC 30 g/dL (31-37); MEAN CORPUSCULAR VOLUME 69 fL (79-100); MONO # 0.5 x10^3/uL (0.0-1.1); MONO % 9 % (0-9); NEUT # 2.7 x10^3/uL (1.8-7.7); NEUT % 43 % (31-73); PLATELET COUNT 242 x10^3/uL (140-400); RED CELL DISTRIBUTION WIDTH 21.2 % (11.5-14.5); WHITE BLOOD COUNT 6.3 x10^3/uL (4.0-11.0)
[2020-10-21 23:50] LABS: CALCIUM 8.4 mg/dL (8.5-10.1); CREATININE 0.9 mg/dL (0.7-1.3); GFR 111.4; POTASSIUM 3.5 mmol/L (3.5-5.1)
[2020-10-21 23:56] LABS: ALBUMIN 3.5 g/dL (3.4-5.0); ALBUMIN/GLOBULIN RATIO 0.9 (1.0-1.7); TOTAL BILIRUBIN 0.6 mg/dL (0.2-1.0); TOTAL PROTEIN 7.6 g/dL (6.4-8.2)
[2020-10-22 00:03] LABS: BARBITURATES NEG (NEG); BENZODIAZEPINES NEG (NEG); CANNABINOIDS NEG (NEG); COCAINE NEG (NEG); METHADONE NEG (NEG); OPIATES NEG (NEG); PHENCYCLIDINE NEG (NEG)
[2020-10-22 00:08] LABS: AMPHETAMINE/METHAMPHETAMINE NEG (NEG)
[2020-10-22] MEDS ORDERED: ZIPRASIDONE IM 20 MG VIAL. IM ONE ×2 (01:08→01:15)
[2020-10-22 01:31] LABS: HEMATOCRIT 23.6 % (39.0-53.0); HEMOGLOBIN 7.2 g/dL (13.0-17.5); RED BLOOD COUNT 3.46 x10^6/uL (4.30-5.70); WHITE BLOOD COUNT 5.2 x10^3/uL (4.0-11.0)
[2020-10-22 01:45] LABS: PLT ESTIMATE ADEQUATE (ADEQUATE)
[2020-10-22 01:46] LABS: ANISOCYTOSIS MOD; HYPOCHROMIA MARKED; MICROCYTOSIS MARKED; POLYCHROMASIA SLIGHT
[2020-10-22] MEDS ORDERED: diphenhydrAMINE 50 MG/ML VIAL IVP ONE (02:00)
[2020-10-22] MEDS ORDERED: IV NORMAL SALINE 1000ML BAG 1,000 ML IV ONE (02:00)
[2020-10-22] MEDS ORDERED: MULTIVIT INFUSN,ADULT 4,VIT K 10 ML, THIAMINE INJ 100 MG, FOLIC ACID INJ 1 MG in IV NOR... IV ONE (02:15)
[2020-10-22] MEDS ORDERED: IOHEXOL 300 MG/ML 100ML VIAL. IV ONE (02:30)
[2020-10-22] MEDS ORDERED: CONTRAST GIVEN. MC PRN (02:30)
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
--- NOTE | 2020-10-22 03:36 | RAD ---
CT head without contrast. CT cervical spine without contrast. CT chest, abdomen and pelvis with contr ast. PQRS statement: CT scans at this facility use dose reduction including either automated exposure cont rol, iterative reconstructions, and /or weight based radiation dosing via mA and kV modification when appropriate to reduce radiation dose to as low as reasonably achievable. Contrast: 100 mL Omnipaque 350 intravenous contrast. HISTORY: Anemia, tachycardia. CT head findings: Mild generalized brain atrophy. No intracranial hemorrhage, mass, hydrocephalus or infarction. Orbits, mastoids and bones are unremarkable. IMPRESSION: No acute intracranial abnormality. CT cervical spine findings: Craniocervical junction intact. Cervical vertebral body height and alignm ent intact. No fracture of the cervical spine. Right apical paraseptal emphysema. Cervical disc heigh t loss and disc osteophytes and uncovertebral spurring with spinal canal and neural frontal stenoses C5-C6 and C6-C7. Paraspinal tissues are unremarkable. Minimal disc bulge C4-C5. IMPRESSION: No acute osseous injury of the cervical spine. Cervical disc disease as described above. CT chest findings: There may be mild thyromegaly. Heart size normal. No adenopathy in the chest. Aort a, pulmonary vessels and esophagus are unremarkable. Right apical paraseptal emphysema. No pneumothor ax, pulmonary opacities or nodules or pleural effusions. Bones are unremarkable. IMPRESSION: No acute process in the chest. CT abdomen findings: Chronic L5 spondylolysis defects, grade one L5 anterolisthesis and advanced L5-S 1 disc disease with severe neural foraminal stenoses. Hypodense liver could be fatty. Kidneys, adrena ls, spleen and gallbladder are unremarkable. Calcifications at the head of the pancreas typical of ch ronic pancreatitis. Mild fluid lower esophagus perhaps due to reflux. The appendix is negative. The s tomach demonstrates prominence of the thickness of the wall measuring up to 2.5 cm, this could be art ifactual due to underdistention although pathologic wall thickening due to gastritis or hypertrophic gastropathy is not excluded. Aortoiliac artery calcified plaque. No abdominal fluid or adenopathy. 1 cm fatty umbilical abdominal wall hernia. Pelvis findings: Bladder, prostate, rectum and bones are unremarkable. Prominent vas deferens calcifi cations can be seen with chronic diabetes. IMPRESSION: 1. Prominent gastric wall thickness could be an artifact due to underdistention of the stomach versus true pathologic wall thickening due to gastritis or hypertrophic gastropathy.. 2. Appendix is negative. 3. Other chronic incidental findings as described above. Electronically signed by: Eugene Kerr MD (10/22/2020 3:34 AM) [facility]
[2020-10-22] MEDS ORDERED: FERR325T14 PO (04:28)
[2020-10-22 05:05] VITALS: BP 111/77
== END 2020-10-22 10:12 | disposition home or self-care (01) ==
LOC: ER 23:15
DX: F10.229 Alcohol dependence with intoxication, unspecified (principal); Y90.9 Presence of alcohol in blood, level not specified; D50.9 Iron deficiency anemia, unspecified; E11.9 Type 2 diabetes mellitus without complications; E78.00 Pure hypercholesterolemia, unspecified; I10 Essential (primary) hypertension; F17.200 Nicotine dependence, unspecified, uncomplicated
CPT/HCPCS: 36415; 70450; 71260; 72125; 74177; 80053; 80307; 82010; 82962; 85025; 85027; 96365; 96366; 96372; 96375; 99285; G0480; J1200; J3411; J3486; J3490; J7030

== ENCOUNTER 2021-02-22 13:00 | Emergency (ER) | payer SELFPAY ==
[~2021-02-22] VITALS: Ht 177.8 cm; Wt 80.0 kg
[~2021-02-22 13:00] MED LIST changes: +FERR325T14 PO
[2021-02-22 13:33] LABS: BASO # 0.1 x10^3/uL (0.0-0.2); BASO % 1 % (0-3); EOS # 0.2 x10^3/uL (0.0-0.7); EOS % 2 % (0-3); HEMATOCRIT 42.2 % (39.0-53.0); HEMOGLOBIN 14.3 g/dL (13.0-17.5); LYMPH # 1.9 x10^3/uL (1.0-4.8); LYMPH % 24 % (24-48); MEAN CORPUSCULAR HEMOGLOBIN 31 pg (25-35); MEAN CORPUSCULAR HGB CONC 34 g/dL (31-37); MEAN CORPUSCULAR VOLUME 90 fL (79-100); MONO # 0.8 x10^3/uL (0.0-1.1); MONO % 10 % (0-9); NEUT # 5.1 x10^3/uL (1.8-7.7); NEUT % 63 % (31-73); PLATELET COUNT 184 x10^3/uL (140-400); RED BLOOD COUNT 4.69 x10^6/uL (4.30-5.70); RED CELL DISTRIBUTION WIDTH 17.8 % (11.5-14.5)
[2021-02-22 13:47] LABS: CALCIUM 9.6 mg/dL (8.5-10.1); CREATININE 0.7 mg/dL (0.7-1.3); GFR 148.9; POTASSIUM 4.3 mmol/L (3.5-5.1)
[2021-02-22 13:53] LABS: ALBUMIN 3.4 g/dL (3.4-5.0); DIRECT BILIRUBIN 0.2 mg/dL (0.0-0.2); TOTAL BILIRUBIN 0.6 mg/dL (0.2-1.0)
--- NOTE | 2021-02-22 14:21 | RAD ---
INDICATION: Reason: chest pain / Spl. Instructions: / History: COMPARISON: October 2017 FINDINGS: Single view of chest obtained. Cardiac silhouette is unremarkable. Appearance the lungs is similar to prior without a definite new region of consolidation. IMPRESSION: * No focal airspace consolidation or edema. Electronically signed by: Terry Loyd MD (02/22/2021 2:19 PM) [id number]
[2021-02-22] MEDS ORDERED: ASPIRIN CHEWABLE 81 MG TABLET. PO ONE (14:30)
--- NOTE | 2021-02-22 14:36 | PHYS DOC ---
Past Medical History Past Medical History: Alcoholism, Diabetes-Type II, High Cholesterol, Hypertension, Other Additional Past Medical Histor: ETOH ABUSE,SLEEP APNEA, Neuropathy Past Surgical History: Other Additional Past Surgical Histo: HERNIA REPAIR Smoking Status: Current Every Day Smoker Alcohol Use: Heavy Drug Use: None General Adult EDM: Chief Complaint: CHEST PAIN HPI: HPI: This is a 45-year-old male presenting the emergency department today with chest pain which is in the left sternum. It is nonradiating. Its point tender in the anterior chest wall. Its worse when he moves the chest wall and when he moves his shoulder. He has a history of diabetes hypertension hyperlipidemia and has a history of smoking. He denies a unilateral leg swelling or hemoptysis. He has a cousin who has had a blood clot./DVT/PE. His pain started today. No alleviating factors. Review of systems negative for abdominal pain vomiting diaphoresis fevers chills. Positive for chest pain. All other review of systems negative. Heart Score: C/O Chest Pain: Yes HEART Score for Chest Pain: HEART Score for Chest Pain Response (Comments) Value History Slighlty/Non-Suspicious 0 ECG Normal 0 Age < 45 0 Risk Factors >3 Risk Factors or Hx CAD 2 Troponin < Normal Limit 0 Total 2 Risk Factors: Risk Factors: DM, Current or recent (<one month) smoker, HTN, HLP, family history of CAD, obesity. Risk Scores: Score 0 - 3: 2.5% MACE over next 6 weeks - Discharge Home Score 4 - 6: 20.3% MACE over next 6 weeks - Admit for Clinical Observation Score 7 - 10: 72.7% MACE over next 6 weeks - Early Invasive Strategies Allergies: Allergies: Allergies Coded Allergies Type Severity Reaction Last Updated Verified No Known Drug Allergies 04/11/15 No Physical Exam: PE: Constitutional: Well developed, well nourished, no acute distress, non-toxic appearance. [] HENT: Normocephalic, atraumatic, bilateral external ears normal, oropharynx moist, no oral exudates, nose normal. [] Eyes: PERRLA, EOMI, conjunctiva normal, no discharge. [] Neck: Normal range of motion, no tenderness, supple, no stridor. [] Cardiovascular:Heart rate regular rhythm, no murmur [] Lungs & Thorax: Bilateral breath sounds clear to auscultation [] Abdomen: Bowel sounds normal, soft, no tenderness, no masses, no pulsatile masses. [] Skin: Warm, dry, no erythema, no rash. [] Back: No tenderness, no CVA tenderness. [] Extremities: No tenderness, no cyanosis, no clubbing, ROM intact, no edema. [] Neurologic: Alert and oriented X 3, normal motor function, normal sensory function, no focal deficits noted. [] Psychologic: Affect normal, judgement normal, mood normal. [] Current Patient Data: Labs: Laboratory Tests Test 02/22/21 13:19 White Blood Count 8.0 x10^3/uL (4.0-11.0) Red Blood Count 4.69 x10^6/uL (4.30-5.70) Hemoglobin 14.3 g/dL (13.0-17.5) Hematocrit 42.2 % (39.0-53.0) Mean Corpuscular Volume 90 fL (79-100) Mean Corpuscular Hemoglobin 31 pg (25-35) Mean Corpuscular Hemoglobin Concent 34 g/dL (31-37) Red Cell Distribution Width 17.8 % (11.5-14.5) H Platelet Count 184 x10^3/uL (140-400) Neutrophils (%) (Auto) 63 % (31-73) Lymphocytes (%) (Auto) 24 % (24-48) Monocytes (%) (Auto) 10 % (0-9) H Eosinophils (%) (Auto) 2 % (0-3) Basophils (%) (Auto) 1 % (0-3) Neutrophils # (Auto) 5.1 x10^3/uL (1.8-7.7) Lymphocytes # (Auto) 1.9 x10^3/uL (1.0-4.8) Monocytes # (Auto) 0.8 x10^3/uL (0.0-1.1) Eosinophils # (Auto) 0.2 x10^3/uL (0.0-0.7) Basophils # (Auto) 0.1 x10^3/uL (0.0-0.2) D-Dimer (Marlee) < 0.27 ug/mlFEU Sodium Level 133 mmol/L (136-145) L Potassium Level 4.3 mmol/L (3.5-5.1) Chloride Level 99 mmol/L (98-107) Carbon Dioxide Level 23 mmol/L (21-32) Anion Gap 11 (6-14) Blood Urea Nitrogen 10 mg/dL (8-26) Creatinine 0.7 mg/dL (0.7-1.3) Estimated GFR (Cockcroft-Gault) 148.9 Glucose Level 201 mg/dL (70-99) H Calcium Level 9.6 mg/dL (8.5-10.1) Total Bilirubin 0.6 mg/dL (0.2-1.0) Direct Bilirubin 0.2 mg/dL (0.0-0.2) Aspartate Amino Transferase (AST) 99 U/L (15-37) H Alanine Aminotransferase (ALT) 160 U/L (16-63) H Alkaline Phosphatase 125 U/L (46-116) H Troponin I Quantitative < 0.017 ng/mL (0.000-0.055) UH-Ivx-S-Type Natriuretic Peptide 25 pg/mL (0-124) Total Protein 7.0 g/dL (6.4-8.2) Albumin 3.4 g/dL (3.4-5.0) Lipase 402 U/L (73-393) H Laboratory Tests 02/22/21 13:19 Laboratory Tests 02/22/21 13:19 Vital Signs: Vital Signs Date Time Temp Pulse Resp B/P (MAP) Pulse Ox O2 Delivery O2 Flow Rate FiO2 02/22/21 13:14 98.5 85 16 132/85 (88) 98 Room Air 98.5 EKG: EKG: [] EKG shows sinus rhythm with regular rate. ST segments congruent. Not suggestive of acute ischemia. Second EKG performed 1620 is similar to previous. No acute changes. Regular rate. Sinus rhythm. ST segments congruent. Not suggestive of acute ischemia. Radiology/Procedures: Radiology/Procedures: [] Course & Med Decision Making: Course & Med Decision Making Pertinent Labs and Imaging studies reviewed. (See chart for details) [] 45-year-old male presenting with chest pain. Clinically his symptoms are strongly suggestive of costochondritis. He is tender to palpation point tenderness in the costochondral region in the anterior chest wall. He has pain with range of motion of his shoulder. He does have risk factors for risk for heart disease. His EKG is unremarkable here. Initial troponin within normal limits. Heart score of 2. My plan is to repeat a EKG and troponin at 4:15 PM. Repeat EKG and troponin are unremarkable. Will discharge to follow-up with PCP. He is to return for any worsening pain. Currently he is chest pain-free. Tin Disclaimer: Tin Disclaimer: This electronic medical record was generated, in whole or in part, using a voice recognition dictation system. Departure Departure Impression: Primary Impression: Chest pain Disposition: HOME / SELF CARE / HOMELESS Condition: STABLE Referrals: NO PCP (PCP) [facility] MD CARDIOLOGY Patient Instructions: Chest Pain (Nonspecific) Additional Instructions: EMERGENCY DEPARTMENT GENERAL DISCHARGE INSTRUCTIONS Follow-up with your primary physician in 1 to 2 days. Follow-up with cardiology in 1 to 2 days. Return to the emergency department if you have any new or concerning findings. Thank you for coming to [facility] Emergency Department (ED) today and trusting us with you care. We trust that you had a positive experience in our Emergency Department. If you wish to speak to the department management, you may call the Director at [phone]. Follow up is important in emergency/acute care visits. This condition should be evaluated by your primary care physician and any necessary consulting services for continued management within a few days (1-2) after discharge. Return to the emergency department if you have any new or concerning symptoms including but not limited to fever, chills, nausea, vomiting, intractable pain, any new rashes, chest pain, shortness of breath, uncontrolled bleeding, difficulty breathing, and/or vision loss. 1. Do you have a private Doctor? If you do not have a private doctor, please ask for a resource list of physicians or clinics that may be able to assist you with follow up care. 2. If a lab test or culture has been done and does not come back immediately, your results will be reviewed and you will be notified if you need a change in treatment. 3. Your care today has been supervised by a physician who is specially trained in emergency care. Many problems require more than one evaluation for a complete diagnosis and treatment. We recommend that you schedule your follow up appointment as recommended to ensure complete treatment of you illness or injury. If you are unable to obtain follow up care and continue to have a problem, or if your condition worsens, we recommend that you return to the ED. 4. We are not able to safely determine your condition over the phone nor are we able to give sound medical advice over the phone. For these safety reasons, if you call for medical advice we will ask you to come to the ED for further evaluation. IF YOUR SYMPTOMS WORSEN OR NEW SYMPTOMS DEVELOP, OR YOU HAVE CONCERNS ABOUT YOUR CONDITION; OR IF YOUR CONDITION WORSENS WHILE YOU ARE WAITING FOR YOUR FOLLOW UP APPOINTMENT; EITHER CONTACT YOUR PRIMARY CARE DOCTOR, THE PHYSICIAN WHOSE NAME AND NUMBER YOU WERE GIVEN, OR RETURN TO THE ED IMMEDIATELY. KIMBERLEE TAYLOR MD Feb 22, 2021 14:36
[2021-02-22 16:42] VITALS: BP 135/83
== END 2021-02-22 17:10 | disposition home or self-care (01) ==
LOC: ER 13:00
DX: R07.2 Precordial pain (principal); E11.40 Type 2 diabetes mellitus with diabetic neuropathy, unspecified; E78.00 Pure hypercholesterolemia, unspecified; I10 Essential (primary) hypertension; F17.200 Nicotine dependence, unspecified, uncomplicated; F10.20 Alcohol dependence, uncomplicated; Y90.9 Presence of alcohol in blood, level not specified
CPT/HCPCS: 36415; 71045; 80048; 80076; 83690; 83880; 84484; 85025; 85379; 93005; 99285-25